=== PATIENT | female | born 1980 | race Caucasian/White ===

== ENCOUNTER → 2019-03-05 23:10 | Observation (INO) ==
[2019-03-05 21:59] VITALS: BP 129/79
[2019-03-05 22:17] LABS: Bilirubin,Urine Negative (Negative); Blood,Urine Small (Negative); Clarity,Urine Turbid (Clear); Color,Urine Yellow (Yellow); Glucose,Urine (UA) Normal (Normal); Ketones,Urine 15 mg/dL (Negative); Leukocyte Esterase,Urine Moderate (Negative); Nitrite,Urine Negative (Negative); Protein,Urine Trace mg/dL (Neg-Trace); Specific Gravity,Urine 1.014 (1.010-1.025)
[2019-03-05 22:20] LABS: Bacteria,Urine Moderate per hpf (None-Few); Hyaline Casts,Urine None Seen per lpf (None-Few); Squamous Epithelial Cell,Urine Many per lpf (None-Few); WBC,Urine 30-50 per hpf (0-3)
[2019-03-05 22:38] LABS: Amphetamine Screen,Urine Negative ng/mL (Cutoff=1000); Barbiturate Screen,Urine Negative ng/mL (Cutoff=200); Benzodiazepines Screen,Urine Negative ng/mL (Cutoff=200); Cannabinoid Screen,Urine Negative ng/mL (Cutoff = 50); Cocaine Screen,Urine Negative ng/mL (Cutoff= 300); Opiate Screen,Urine Negative ng/mL (Cutoff=300); Phencyclidine Screen,Urine Negative ng/mL (Cutoff=25)
--- NOTE | 2019-03-05 22:57 | Discharge Summary ---
Date of Encounter: 03/05/19 Time of Encounter: 22:56 - Discharge Diagnosis (1) 34 weeks gestation of Priority: Primary Status: Acute Comments: Admit to observation for possible PPROM (2) NST (non-stress test) reactive Priority: Secondary Status: Acute Comments: FHR 140 bpm, moderate variability, +15x15 accels, no decels. (3) Vaginal discharge during in third trimester Priority: Secondary Status: Acute Comments: Positive nitrazine on external exam, patient reports intercourse this afternoon. SSE reveals no obvious fluid, moderate amount of thick discharge, vaginosis panel collected and pending at time of note. Will treat as appropriate for any positive results. FERN negative and underpad dry during stay - Discharge Medications Prescriptions: No Action Ranitidine HCl 50 mg PO DAILY Formula Tablet 1 tab PO DAILY Home Medications: Formula Tablet 1 tab PO DAILY 03/05/19 [History] Ranitidine HCl 50 mg PO DAILY 03/05/19 [History] Allergies/Adverse Reactions: Allergy/AdvReac Type Severity Reaction Status Date / Time Penicillins Allergy Rash Verified 11/28/18 14:43 Data Procedures and tests throughout hospitalization: Laboratory Tests 03/05/19 03/05/19 22:05 22:05 Urine Color Yellow Urine Clarity Turbid A Urine pH 7.0 Ur Specific [place] 1.014 Urine Protein Trace Urine Glucose (UA) Normal Urine Ketones 15 H Urine Blood Small H Urine Nitrite Negative Urine Bilirubin Negative Urine Urobilinogen 2.0 H Ur Leukocyte Esterase Moderate H Urine Microscopic RBC 5-15 H Urine Microscopic WBC 30-50 H Ur Squamous Epith Cells Many H Urine Bacteria Moderate H Hyaline Casts None Seen Ur Culture Indicated? NO. A Urine Opiates Screen Negative Ur Barbiturates Screen Negative Ur Phencyclidine Scrn Negative Ur Amphetamines Screen Negative U Benzodiazepines Scrn Negative Urine Cocaine Screen Negative U Marijuana (THC) Screen Negative Ur Drug Screen Interp See Below Labs on day of discharge: Labs from last 24 hours 03/05/19 03/05/19 22:05 22:05 Urine Color Yellow Urine Clarity Turbid A Urine pH 7.0 Ur Specific [place] 1.014 Urine Protein Trace Urine Glucose (UA) Normal Urine Ketones 15 H Urine Blood Small H Urine Nitrite Negative Urine Bilirubin Negative Urine Urobilinogen 2.0 H Ur Leukocyte Esterase Moderate H Urine Microscopic RBC 5-15 H Urine Microscopic WBC 30-50 H Ur Squamous Epith Cells Many H Urine Bacteria Moderate H Hyaline Casts None Seen Ur Culture Indicated? NO. A Urine Opiates Screen Negative Ur Barbiturates Screen Negative Ur Phencyclidine Scrn Negative Ur Amphetamines Screen Negative U Benzodiazepines Scrn Negative Urine Cocaine Screen Negative U Marijuana (THC) Screen Negative Ur Drug Screen Interp See Below Date of admission: 03/05/19 21:38 Discharging clinician: Katie Florez Anticipated date of discharge: 03/05/19 - Patient Status Disposition: Home, Self-Care Condition: Good Functional capacity at discharge: independent ambulation Overall status at discharge: patient is progressing back to baseline - Discharge Instructions Follow Up With: Kraig Mina DO [Partnered Physician] - - Diet and Activity Activity: resume usual activities as tolerated Diet: regular diet Hospital Course CLINICAL ORTHOPTIST Hospital course: Berkley is a at 34w4d who presents today with possible PPROM. On initial exam, nitrazine to the perineum was positive. SSE completed and no pooling visualized in vaginal vault. FERN completed and negative. Moderate amount of thick vaginal discharge noted, vaginosis panel collected and results are pending at the time of this note. Will treat as appropriate for any positive results. No fluid on pad during stay. She is to follow up with Dr. Mina as scheduled for routine visit. Time Attestation: Total time spent providing and/or coordinating discharge services: Time Spent: Less than 30 minutes Exam - Constitutional Vitals: Temp Pulse Resp BP 98.9 F 90 15 129/79 03/05/19 21:58 03/05/19 21:58 03/05/19 21:58 03/05/19 21:58 General appearance IM: A&O X 3, pleasant, no acute distress, answers questions appropriately - Respiratory Respiratory exam: Present: CTAB - Cardiovascular Cardiovascular exam IM: Present: RRR, +S1, +S2 - GI/Abdominal GI/Abdominal exam IM: normal bowel sounds - Rectal Rectal exam: deferred - External exam: normal external exam - Extremities Exam Extremities exam IM: Present: full ROM, normal capillary refill, normal inspection - Neurological Exam Neurological exam: alert, normal gait, oriented X3 - VTE Reasons for not Prescribing Prophylaxis: Treatment not Indicated - Low risk for VTE
[2019-03-05 23:21] LABS: Candida DNA DETECTED (Not Detect); Gardnerella DNA Not Detected (Not Detect); Trichomonas DNA Not Detected (Not Detect)
== END | disposition home or self-care (01) ==
LOC: 1NENULAB
PROVIDERS: ADMIT Registered Nurse; ATTEND Registered Nurse

== ENCOUNTER 2019-04-13 07:22 | Inpatient (IN) ==
[2019-04-13] MEDS ORDERED: Famotidine 20 MG/2 ML VIAL IVP PRN (08:16)
[2019-04-13] MEDS ORDERED: Naloxone 0.4 MG/ML INJ IVP PRN (08:16)
[2019-04-13] MEDS ORDERED: Ondansetron 4 MG/2 ML VIAL IVP PRN (08:16)
[2019-04-13] MEDS ORDERED: *HR* Nalbuphine 10 MG/ML AMPUL IVP PRN (08:16)
[2019-04-13] MEDS ORDERED: Metoclopramide 10 MG/2 ML VIAL IVP PRN (08:16)
[2019-04-13] MEDS ORDERED: Ringers Solution, Lactated 1,000 ML IVC SCH (08:30)
[2019-04-13] MEDS ORDERED: miSOPROStol 25 MCG TABLET PO PRN (08:41)
[2019-04-13 08:44] LABS: Basophils # 0.1 K/mcL (0.0-0.2); Basophils % 0.7 %; Eosinophils # 0.6 K/mcL (0.0-0.6); Eosinophils % 5.1 %; Hematocrit 35.4 % (35.3-44.9); Hemoglobin 10.8 g/dL (11.5-15.4); Immature Granulocytes % 2.6 % (0-4); Lymphocytes # 1.9 K/mcL (0.6-4.6); Lymphocytes % 15.4 %; Mean Corpuscular HGB Conc 30.5 g/dL (31.6-35.5); Mean Corpuscular Volume 78.7 fL (83.0-100.0); Mean Platelet Volume 10.9 fL (9.4-12.4); Monocytes % 8.3 %; Neutrophils # 8.3 K/mcL (1.6-8.9); Platelet Count 407 K/mcL (140-400); Red Cell Distribution Width 13.7 % (11.5-14.5); Segmented Neutrophils % 67.9 %
[2019-04-13 08:53] LABS: Amphetamine Screen,Urine Negative ng/mL (Cutoff=1000); Barbiturate Screen,Urine Negative ng/mL (Cutoff=200); Benzodiazepines Screen,Urine Negative ng/mL (Cutoff=200); Cannabinoid Screen,Urine Negative ng/mL (Cutoff = 50); Cocaine Screen,Urine Negative ng/mL (Cutoff= 300); Opiate Screen,Urine Negative ng/mL (Cutoff=300); Phencyclidine Screen,Urine Negative ng/mL (Cutoff=25)
--- NOTE | 2019-04-13 10:31 | OB/GYN History & Physical ---
Date of Encounter: 04/13/19 Time of Encounter: 10:24 Assessment and Plan (1) 40 weeks gestation of Current visit: Yes Status: Acute Admit to L&D for induction of labor 50 g Cytotec by mouth 2 doses 4 hours apart Offered Frey balloon and patient declined Pain management plan is natural childbirth Labs-CBC and clot to hold Continuous electronic monitoring Anticipate vaginal delivery Dr. Louis is the OB on-call and is available as needed (2) Intact amniotic membranes during in third trimester Current visit: Yes Status: Acute (3) Intrauterine Current visit: Yes Status: Acute (4) Advanced maternal age in multigravida Current visit: Yes Status: Acute Qualifiers: Trimester: third trimester Qualified Code(s): O09.523 - Supervision of elderly multigravida, third trimester (5) Type O blood, Rh positive Current visit: Yes Status: Acute (6) NST (non-stress test) reactive Current visit: No Status: Acute History of Present Illness Chief complaint: Scheduled IOL HPI: Ms. Moreira is a 38 year old female 003 at 40 weeks 0 days ges tation with an estimated date of of 04/13/19 dated by LMP. She presents today for scheduled induction of labor secondary to nonreactive NST and being advanced maternal age at 40 weeks. She endorses good movement and denies leakage of fluid, vaginal bleeding, contractions. She was followed by Dr. Mina throughout her and had adequate care. records are available electronically and have been reviewed. Labs: O+ GBS- Hep B- HIV- T. Palladium- GC/CL- Rubella immune Varicella immune Past Med Surg Social Fam HX - Past Medical History Medical history: no medical history Psychiatric history: anxiety, depression - Past Surgical History Surgical History: cholecystectomy Additional surgical history: tonsillectomy - Social History Smoking Status: Never smoker Smokeless Tobacco Status: No Alcohol use: none Drug use: none - Family History Mother Living Status: Still Living Hx Family Cardiac Disorders: No Hx Family Respiratory Disorders: No Hx Family Cancer: No Hx Family GI Disorders: No Hx Family Endocrine Disorder: No Hx Family Neuromuscular Disorders: No Hx Family Neurologic Disorders: No Hx Family HEENT Disorders: No Hx Family Autoimmune Disorders: No Hx Family Medical Disorders: Yes (CHOLECYSTECTOMY) Obstetrical History - Pregnancies : 4 Para: 3 Term: 3 (# 1: 1996, vaginal delivery, 37 weeks, male, 6-2#; # 2: 1998, vaginal delivery, 40 weeks, male; # 3 1999, vaginal delivery, 40 weeks, female) : 0 Ab's: 0 Livin Medications and Allergies Formula Tablet 1 tab PO DAILY 03/05/19 [History] Ranitidine HCl 50 mg PO DAILY 03/05/19 [History] Allergy/AdvReac Type Severity Reaction Status Date / Time Penicillins Allergy Rash Verified 11/28/18 14:43 Review of System OB All systems PM: reviewed and no additional remarkable complaints except as stated Exam - Constitutional Constitutional: well developed, well nourished, no acute distress, average body habitus - HEENT HEENT: PERRL, Normocephaly, Mucus Membranes Moist - Neck Neck exam: full ROM - Lungs Respiratory exam: CTAB - Cardiovascular Cardiovascular exam: RRR, +S1, +S2 - Breasts Breast: bilateral: normal - Abdomen Abdomen: Present: bowel sounds normal, gravid, non tender - Extremities Extremities exam: full ROM, normal capillary refill, normal inspection, radial pulses palpable and symmetrical - Vulva Vulva: bilateral: normal - Vagina Vagina: Present: normal moisture - Cervix Dilation: 3 (per rn) Effacement: 60 Station: -1 - Uterus Uterus exam: Present: normal size, normal contour - Adnexa Adnexa: bilateral: normal - Anus/Rectum Anus/Rectum: Present: normal perianal skin Results Result Diagrams: 04/13/19 08:15 Abnormal lab results WBC 12.3 K/mcL (4.3-11.1) H 04/13/19 08:15 Hgb 10.8 g/dL (11.5-15.4) L 04/13/19 08:15 MCV 78.7 fL (83.0-100.0) L 04/13/19 08:15 MCH 24.0 pg (28.0-33.3) L 04/13/19 08:15 MCHC 30.5 g/dL (31.6-35.5) L 04/13/19 08:15 Plt Count 407 K/mcL (140-400) H 04/13/19 08:15 All other labs normal. - VTE Reasons for not Prescribing Prophylaxis: Treatment not Indicated - Low risk for VTE
[2019-04-13] MEDS ORDERED: Oxytocin 20 units/ LR 1000 mL 20 UNIT/1,000 ML BAG IVC SCH (13:30)
--- NOTE | 2019-04-13 15:39 | OB Labor Progress Note ---
Date of Encounter: 04/13/19 Time of Encounter: 15:10 Labor Progress Note - Subjective Subjective: Patient reports contractions are painful at 4-5 out of 10. She states they are still manageable - Cervix Cervix: 4/60/-2 - Heart Tones Heart Tones: Baseline 150 Accelerations present No decelerations Moderate variability FHR category I - [place]: Contractions every 2 minutes and palpate mild - Interventions Interventions: SVE Position change to right side-lying peanut ball - Plan Physician notified: No Plan: Continue induction management Increase Pitocin per policy to adequate pattern for cervical change Hourly position changes with peanutball Anticipate vaginal delivery
--- NOTE | 2019-04-13 17:16 | OB Labor Progress Note ---
Date of Encounter: 04/13/19 Time of Encounter: 17:04 Labor Progress Note - Subjective Subjective: Patient reports contraction pain at 5-1/2 out of 10. She remains they are manageable. - Cervix Cervix: 5/70/-1 - Heart Tones Heart Tones: Baseline 130 Moderate variability Accelerations present No decelerations FHR category I - [place]: Palpate contractions every 2-4 minutes - Interventions Interventions: SVE Position changes with peanut ball - Plan Physician notified: No Plan: Continue induction management Position changes frequently Continue Pitocin Anticipate vaginal delivery
--- NOTE | 2019-04-13 21:46 | OB/GYN Procedure Note ---
Delivery - Delivery Date: 04/13/19 Provider: Niesha Ruiz Intrapartum events: none Delivery induction: misoprostol Delivery augmentation: pitocin Delivery monitor: external FHT, external uterine Anesthesia: none Quantitated Blood Loss: 350 - (s) Infant A Delivery Date: 04/13/19 Infant Delivery Time: 21:19 Presentation: vertex Position: ESTELITA Route of delivery: Gender: Female Viability: Viable Pounds: 6 Ounces: 9 Weight Gram: 2.98 kg at 1 minute: 8 at 5 mins: 9 Shoulder Dystocia: not encountered Specimens collected: cord blood Placenta: spontaneous Cord: nuchal cord, 3 umbilical vessels - Repair Episiotomy: none Laceration Description: Labial (left - unrepaired per patient request - hemostatic) - Complications Delivery complications: none Delivery comments: This is a 38 year old G4 now [id number] who was admitted for induction of labor secondary to nonreactive NST at term and advanced maternal age. She progressed with Cytotec induction and Pitocin augmentation to the second stage of labor. She pushed for 20 minutes. She delivered a viable, female "ESTELITA Coleman over an intact perineum. A nuchal cord was identified. The cord was easily reduced prior to delivery. A shoulder dystocia was not encountered. The infant was placed on the maternal abdomen and allowed to transition spontaneously. The cord was double clamped by pilling machine operator after pulsations ceased and cut by Yanet Agosto RN. scores were 8 at 1 minute and 9 at 5 minutes. The infant weighed 6lbs 9oz (2980g). The placented delivered spontaneously, intact ([place]) with a 3-vessel cord. Inspection revealed 2 left labial lacerations. There were left unrepaired per patient request and were both hemostatic. The uterus was firm with no active bleeding. EBL was 350 mL. Placenta and umbilical artery blood gases were not sent. There were no complications during the procedure. Mom and baby are skin to skin following delivery. - Disposition Mom disposition: stable in LDR disposition: stable in LDR
[2019-04-14] MEDS ORDERED: Ibuprofen 600 MG TABLET PO PRN (00:18)
[2019-04-14] MEDS ORDERED: Acetaminophen 325 MG TABLET PO PRN (00:18)
[2019-04-14] MEDS ORDERED: Oxytocin 20 units/ LR 1000 mL 20 UNIT/1,000 ML BAG IVC SCH (00:18)
[2019-04-14 04:40] LABS: Basophils # 0.1 K/mcL (0.0-0.2); Basophils % 0.4 %; Eosinophils # 0.2 K/mcL (0.0-0.6); Hematocrit 31.1 % (35.3-44.9); Hemoglobin 9.7 g/dL (11.5-15.4); Lymphocytes # 1.3 K/mcL (0.6-4.6); Mean Corpuscular HGB Conc 31.2 g/dL (31.6-35.5); Mean Corpuscular Hemoglobin 24.2 pg (28.0-33.3); Mean Corpuscular Volume 77.6 fL (83.0-100.0); Mean Platelet Volume 10.7 fL (9.4-12.4); Monocytes # 1.3 K/mcL (0.0-1.3); Monocytes % 7.9 %; Neutrophils # 13.3 K/mcL (1.6-8.9); Platelet Count 334 K/mcL (140-400); Red Blood Count 4.01 M/mcL (3.82-4.97); Red Cell Distribution Width 13.7 % (11.5-14.5); Segmented Neutrophils % 81.7 %
[2019-04-14 08:22] VITALS: BP 126/84
[2019-04-14] MEDS ORDERED: Prenatal Vit/FA 1 EACH TABLET PO SCH (09:00)
--- NOTE | 2019-04-14 09:00 | Discharge Summary ---
Date of Encounter: 04/14/19 Time of Encounter: 08:58 - Discharge Diagnosis (1) Status post vaginal delivery Priority: Primary Status: Acute Comments: 38 y/o F s/p vaginal delivery induced for nonreactive NST at 38 weeks is recovering weel. She is able to tolerate regular diet with flatus but denies BM. Reports minimal bleeding with out clots. Denies dysuria. Vitals reviewed, no new complaints, and no events overnight besides delivery at 2119. She plans to formula feed and was visited by [facility]. She desires tubal ligation and plans to follow up with Dr Mina. Depo offered as bridge. Pt will consider this prior to discharge. (2) Advanced maternal age in multigravida Priority: Secondary Status: Acute Qualifiers: Trimester: third trimester Qualified Code(s): O09.523 - Supervision of elderly multigravida, third trimester (3) Anemia due to blood loss, acute Priority: Secondary Status: Acute Comments: HgB 9.7 from 10.8 eitology acute blood loss anemia on chronic anemia of with baseline HgB 11 - cont iron supplement (4) control counseling Priority: Secondary Status: Acute Comments: Patient desires tubal ligation at later date - will follow up out patient - Discharge Medications Prescriptions: New Docusate [Colace] 100 mg PO BID #60 capsule Ferrous Sulfate 325 mg PO DAILY #30 tablet Ibuprofen [Motrin] 600 mg PO Q6HR #60 tablet Acetaminophen [Tylenol] 650 mg PO Q6HR PRN tablet PRN Reason: Mild Pain Continued Ranitidine HCl 50 mg PO DAILY Formula Tablet 1 tab PO DAILY #30 Home Medications: Ranitidine HCl 50 mg PO DAILY 03/05/19 [History] Acetaminophen [Tylenol] 650 mg PO Q6HR PRN tablet 04/14/19 [Rx] Docusate [Colace] 100 mg PO BID #60 capsule 04/14/19 [Rx] Ferrous Sulfate 325 mg PO DAILY #30 tablet 04/14/19 [Rx] Ibuprofen [Motrin] 600 mg PO Q6HR #60 tablet 04/14/19 [Rx] Formula Tablet 1 tab PO DAILY #30 04/14/19 [Rx] Allergies/Adverse Reactions: Allergy/AdvReac Type Severity Reaction Status Date / Time Penicillins Allergy Rash Verified 11/28/18 14:43 Data Procedures and tests throughout hospitalization: Laboratory Tests 04/13/19 04/13/19 04/14/19 08:15 08:15 04:27 WBC 12.3 H 16.3 H RBC 4.50 4.01 Hgb 10.8 L 9.7 L Hct 35.4 31.1 L MCV 78.7 L 77.6 L MCH 24.0 L 24.2 L MCHC 30.5 L 31.2 L RDW 13.7 13.7 Plt Count 407 H 334 MPV 10.9 10.7 Immature Gran % 2.6 1.0 Seg Neutrophils % 67.9 81.7 Lymphocytes % 15.4 8.0 Monocytes % 8.3 7.9 Eosinophils % 5.1 1.0 Basophils % 0.7 0.4 Neutrophils # 8.3 13.3 H Lymphocytes # 1.9 1.3 Monocytes # 1.0 1.3 Eosinophils # 0.6 0.2 Basophils # 0.1 0.1 Urine Opiates Screen Negative Ur Barbiturates Screen Negative Ur Phencyclidine Scrn Negative Ur Amphetamines Screen Negative U Benzodiazepines Scrn Negative Urine Cocaine Screen Negative U Marijuana (THC) Screen Negative Ur Drug Screen Interp See Below Labs on day of discharge: Labs from last 24 hours 04/14/19 04:27 WBC 16.3 H RBC 4.01 Hgb 9.7 L Hct 31.1 L MCV 77.6 L MCH 24.2 L MCHC 31.2 L RDW 13.7 Plt Count 334 MPV 10.7 Immature Gran % 1.0 Seg Neutrophils % 81.7 Lymphocytes % 8.0 Monocytes % 7.9 Eosinophils % 1.0 Basophils % 0.4 Neutrophils # 13.3 H Lymphocytes # 1.3 Monocytes # 1.3 Eosinophils # 0.2 Basophils # 0.1 Date of admission: 04/13/19 07:22 Primary care physician: PCP NONE Consults: 04/14/19 00:18 Consult to Parking Manager [CONS] Routine Comment: Vaginal delivery, consult needed Discharging clinician: Yanet Galo Anticipated date of discharge: 04/14/19 - Patient Status Disposition: Home, Self-Care Condition: Good Functional capacity at discharge: independent ambulation Overall status at discharge: patient is progressing back to baseline - Discharge Instructions Follow Up With: NONE,PCP [Primary Care Provider] - Mina,Kraig S, DO [Partnered Physician] - Additional Instructions: Call office to follow up outpatient for your desire for tubal ligation - Diet and Activity Activity: increase activity as tolerated Diet: advance to your usual diet Hospital Course Reason for admission: IUP - Delivery: Episiotomy: none Laceration: other (two left labial lacerations left unrepaired by patient request) Other procedures: none complications: none Discharge diagnosis: IUP at term delivered baby: female Hospital course: Delivery - Delivery Date: 04/13/19 Provider: Niesha Ruiz Intrapartum events: none Delivery induction: misoprostol Delivery augmentation: pitocin Delivery monitor: external FHT, external uterine Anesthesia: none Quantitated Blood Loss: 350 - (s) Infant A Delivery Date: 04/13/19 Infant Delivery Time: 21:19 Presentation: vertex Position: ESTELITA Route of delivery: Gender: Female Viability: Viable Pounds: 6 Ounces: 9 Weight Gram: 2.98 kg at 1 minute: 8 at 5 mins: 9 Shoulder Dystocia: not encountered Specimens collected: cord blood Placenta: spontaneous Cord: nuchal cord, 3 umbilical vessels - Repair Episiotomy: none Laceration Description: Labial (left - unrepaired per patient request - hemostatic) - Complications Delivery complications: none Delivery comments: This is a 38 year old G4 now P4004 who was admitted for induction of labor secondary to nonreactive NST at term and advanced maternal age. She progressed with Cytotec induction and Pitocin augmentation to the second stage of labor. She pushed for 20 minutes. She delivered a viable, female "Laina"ESTELITA over an intact perineum. A nuchal cord was identified. The cord was easily reduced prior to delivery. A shoulder dystocia was not encountered. The infant was placed on the maternal abdomen and allowed to transition spontaneously. The cord was double clamped by pipe bowls paint trimmer after pulsations ceased and cut by Yanet Agosto RN. scores were 8 at 1 minute and 9 at 5 minutes. The infant weighed 6lbs 9oz (2980g). The placented delivered spontaneously, intact ([place]) with a 3-vessel cord. Inspection revealed 2 left labial lacerations. There were left unrepaired per patient request and were both hemostatic. The uterus was firm with no active bleeding. EBL was 350 mL. Placenta and umbilical artery blood gases were not sent. There were no complications during the procedure. Mom and baby are skin to skin following delivery. Time Attestation: Total time spent providing and/or coordinating discharge services: Exam - Constitutional Vitals: Temp Pulse Resp BP Pulse Ox 97.8 F 72 14 126/84 98 04/14/19 08:21 04/14/19 08:21 04/14/19 08:21 04/14/19 08:21 04/14/19 08:21 General appearance IM: cooperative, A&O X 3, no acute distress, answers questions appropriately - Respiratory Respiratory exam: Present: CTAB. Absent: decreased breath sounds, wheezes - Cardiovascular Cardiovascular exam IM: Present: RRR. Absent: diastolic murmur, systolic murmur - GI/Abdominal GI/Abdominal exam IM: normal bowel sounds - Uterus Position: 1 Finger Below Umbilicus - Extremities Exam Extremities exam IM: Present: full ROM, radial pulses palpable and symmetrical. Absent: calf tenderness, pedal edema - Neurological Exam Neurological exam: alert, oriented X3, no focal deficits
== END 2019-04-14 12:21 | disposition home or self-care (01) | DRG 560 ==
LOC: 1NENULAB 07:22 → 1NENUOBS 04-14 00:14
PROVIDERS: ADMIT Advanced Practice Midwife; ATTEND Advanced Practice Midwife

== ENCOUNTER 2022-02-15 15:05 | Inpatient (IN) ==
[2022-02-15 14:29] LABS: Bacteria,Urine Few per hpf (None-Few); Bilirubin,Urine Negative (Negative); Blood,Urine Negative (Negative); Clarity,Urine Turbid (Clear); Color,Urine Light-Yellow (Yellow); Glucose,Urine (UA) Normal (Normal); Ketones,Urine Negative (Negative); Leukocyte Esterase,Urine Large (Negative); Mucus,Urine Few per lpf (None-Few); Nitrite,Urine Negative (Negative); PH,Urine 6.5 pH Units (5.0-8.0); Protein,Urine Trace mg/dL (Neg-Trace); Specific Gravity,Urine 1.012 (1.010-1.025); Squamous Epithelial Cell,Urine Moderate per hpf (None-Few); Urobilinogen,Urine Normal (Normal); WBC,Urine 30-50 per hpf (0-3)
[~2022-02-15 15:05] MED LIST: *HR* Nalbuphine 10 MG/ML AMPUL IV PRN; Azithromycin 500 MG in 0.9 % Sodium Chloride 250 ML IVPB PRN; Famotidine 20 MG/2 ML VIAL IVP PRN; Metoclopramide 10 MG/2 ML VIAL IVP PRN; Naloxone 0.4 MG/ML INJ IVP PRN; Ondansetron 4 MG/2 ML VIAL IVP PRN
[2022-02-15] MEDS ORDERED: Ringers Solution, Lactated 1,000 ML IVC SCH (15:15)
[2022-02-15] MEDS ORDERED: Oxytocin 30 UNIT/503 ML BAG IVC SCH (15:30)
[2022-02-15 15:58] LABS: Basophils # 0.1 K/mcL (0.0-0.2); Basophils % 0.8 %; Eosinophils # 0.2 K/mcL (0.0-0.6); Eosinophils % 1.4 %; Hematocrit 38.3 % (35.3-44.9); Immature Granulocytes % 3.7 % (0-4); Lymphocytes # 1.7 K/mcL (0.6-4.6); Lymphocytes % 12.9 %; Mean Corpuscular HGB Conc 31.3 g/dL (31.6-35.5); Mean Corpuscular Hemoglobin 25.8 pg (28.0-33.3); Mean Corpuscular Volume 82.2 fL (83.0-100.0); Mean Platelet Volume 10.4 fL (9.4-12.4); Monocytes % 7.4 %; Neutrophils # 9.6 K/mcL (1.6-8.9); Platelet Count 316 K/mcL (140-400); Red Blood Count 4.66 M/mcL (3.82-4.97); Red Cell Distribution Width 22.1 % (11.5-14.5); Segmented Neutrophils % 73.8 %
[2022-02-15] MEDS ORDERED: EPHEDrine 50 MG/ML VIAL IVP PRN (16:05)
[2022-02-15 16:15] LABS: Amphetamine Screen,Urine Negative ng/mL (Cutoff=1000); Barbiturate Screen,Urine Negative ng/mL (Cutoff=200); Benzodiazepines Screen,Urine Negative ng/mL (Cutoff=200); Cannabinoid Screen,Urine Negative ng/mL (Cutoff = 50); Cocaine Screen,Urine Negative ng/mL (Cutoff= 300); Opiate Screen,Urine Negative ng/mL (Cutoff=300); Phencyclidine Screen,Urine Negative ng/mL (Cutoff=25)
[2022-02-15] MEDS ORDERED: Epidural Premix (fent/bupiv) 110 ML EP SCH (16:15)
[2022-02-15 16:17] LABS: Influenza A PCR Negative (Negative); Influenza B PCR Negative (Negative); Resp. Syncytial Virus PCR Negative (Negative)
[2022-02-15 16:19] LABS: SARS-CoV-2 by PCR (In House) Negative (Negative)
[2022-02-16] MEDS ORDERED: Rho Immune Globulin 1,500 UNIT SYRINGE IM PRN (05:07)
[2022-02-16] MEDS ORDERED: Measles/Mumps/Rubella Vacc 0.5 ML VIAL SQ PRN (05:07)
[2022-02-16] MEDS ORDERED: Benzocaine/Menthol 56 GM AEROSOL SPRAY TP PRN (05:07)
[2022-02-16] MEDS ORDERED: Oxytocin 30 UNIT/503 ML BAG IVC SCH (05:07)
[2022-02-16] MEDS ORDERED: Lanolin 7 G OINT...G. TP PRN (05:07)
[2022-02-16] MEDS ORDERED: Ondansetron ODT 4 MG TAB.RAPDIS SL PRN (06:00)
[2022-02-16] MEDS: Acetaminophen 325 MG TABLET PO SCH ×3 (06:01→17:50)
[2022-02-16] MEDS: Prenatal Vit/FA 1 EACH TABLET PO SCH (09:19)
[2022-02-16] MEDS: Nitrofurantoin (BID) 100 MG CAPSULE PO SCH ×2 (10:26→17:51)
[2022-02-16] MEDS: Ibuprofen 600 MG TABLET PO SCH ×2 (11:53→17:51)
[2022-02-17 05:20] VITALS: O2SAT 97
[2022-02-17 05:36] LABS: Basophils # 0.1 K/mcL (0.0-0.2); Basophils % 0.6 %; Eosinophils # 0.3 K/mcL (0.0-0.6); Eosinophils % 2.4 %; Hematocrit 32.2 % (35.3-44.9); Immature Granulocytes % 3.1 % (0-4); Lymphocytes # 2.4 K/mcL (0.6-4.6); Lymphocytes % 21.4 %; Mean Corpuscular HGB Conc 31.7 g/dL (31.6-35.5); Mean Corpuscular Hemoglobin 26.4 pg (28.0-33.3); Mean Corpuscular Volume 83.2 fL (83.0-100.0); Mean Platelet Volume 10.4 fL (9.4-12.4); Neutrophils # 7.1 K/mcL (1.6-8.9); Platelet Count 279 K/mcL (140-400); Red Blood Count 3.87 M/mcL (3.82-4.97); Red Cell Distribution Width 21.9 % (11.5-14.5); Segmented Neutrophils % 63.5 %; White Blood Count 11.2 K/mcL (4.3-11.1)
[2022-02-17 05:37] LABS: Hemoglobin 10.2 g/dL (11.5-15.4)
[2022-02-17] MEDS: Acetaminophen 325 MG TABLET PO SCH (06:21)
[2022-02-17] MEDS: Ibuprofen 600 MG TABLET PO SCH (06:21)
[2022-02-17 07:13] VITALS: BP 126/86; PULSE 88; TEMP 97.7
[2022-02-17] MEDS: Nitrofurantoin (BID) 100 MG CAPSULE PO SCH (07:37)
[2022-02-17] MEDS: Prenatal Vit/FA 1 EACH TABLET PO SCH (07:38)
== END 2022-02-17 09:07 | disposition home or self-care (01) | DRG 560 ==
LOC: 1NENULAB → 1NENUOBS 02-16 05:22
PROVIDERS: ADMIT Advanced Practice Midwife; ATTEND Advanced Practice Midwife